=== PATIENT | male | born 1955 | race Caucasian/White ===

== ENCOUNTER 2023-10-08 22:58 | Emergency (ER) | payer MEDICARE ==
--- NOTE | 2023-10-09 00:21 | ED Physician Documentation ---
History of Present Illness - Stated complaint Stated Complaint: BILAT FEET SWELLING - Chief complaint Chief Complaint: Ext Problem - History obtained from History obtained from: Patient - Additonal information Additional information: HPI from patient. Patient complains of bilateral lower extremity swelling over the past 2 to 3 days, although predominantly right-sided. He has never had this before. He says there is no associated pain in either leg. The swelling in the right leg has been gradually worsening over this timeframe. 10 days ago, the patient [facility] [place] [facility]. Patient also notes dyspnea, exacerbated with exertion, over the past 2 to 3 days, as well. He does not offer chest pain is a chief complaint, but on review of systems, the patient does note episodic chest discomfort, midline anterior, over the past 2 to 3 months. Review of Systems Constitutional: reports: Reviewed and negative Cardiac: reports: Chest pain / pressure, Pedal edema. denies: Palpitations, Calf pain Respiratory: reports: Dyspnea. denies: Cough GI: denies: Abdominal Pain, Nausea, Vomiting PD PAST MEDICAL HISTORY - Past Medical History Past Medical History: Yes Musculoskeletal: Chronic back pain - Past Surgical History Past Surgical History: Yes Ortho: Spine surgery - Present Medications Home Medications: Ambulatory Orders Medication Instructions Recorded Confirmed Aspirin [[place] Aspirin] 81 mg PO DAILY 10/08/23 10/08/23 Gabapentin [Neurontin] 100 mg PO UD 10/08/23 10/08/23 Multivitamin 1 each PO DAILY 10/08/23 10/08/23 Saw [place] 160 mg PO DAILY 10/08/23 10/08/23 Zinc Gluconate [Zinc] 30 mg PO DAILY 10/08/23 10/08/23 Furosemide [Lasix] 20 mg PO BID #10 tablet 10/09/23 - Allergies Allergies/Adverse Reactions: Allergies Allergy/AdvReac Type Severity Reaction Status Date / Time bee venom protein (honey bee) Allergy Anaphylaxis Verified 10/08/23 23:42 - Social History Does the pt smoke?: Yes Smoking Status: Current every day smoker Does the pt drink ETOH?: Yes PD ED PE NORMAL - Vitals Vital signs reviewed: Yes - General General: Alert and oriented X 3, No acute distress, Well developed/nourished - Neck Neck: Supple, no meningeal sign - Cardiac Cardiac: RRR, No murmur, No gallop, No rub, Other (rare skipped beat) - Respiratory Respiratory: No respiratory distress, Clear bilaterally - Abdomen Abdomen: Soft, Non tender PD ED PE EXPANDED - Extremities Extremities: Pedal edema R, Other (mild RLE pitting edema from toes to proximal lower leg. no erythema, no tenderness. strong bilateral pedal pulses and brisk capillary refill. trace LLE edema at ankle) Results - Vitals Vitals: Oxygen O2 Source Room air - EKG (time done) No standard instances EKG releavant findings:: EKG personally interpreted by author of this note. Relevant findings are: Rate: Rate (enter#) (98) Rhythm: NSR [place]: LAD Intervals: Normal SD, LBBB (incomplete) QRS: LVH Ischemia: ST elevation c/w repol, Q waves (inferior leads, V1, V2) Compare to prior EKG: Old EKG unavailable - Labs Labs: Laboratory Tests 10/09/23 10/09/23 10/09/23 01:15 01:15 01:15 WBC 10.3 RBC 5.29 Hgb 16.5 Hct 51.9 MCV 98.1 H MCH 31.2 H MCHC 31.8 L RDW 13.1 Plt Count 233 MPV 9.8 Neut # (Auto) 7.4 H Lymph # (Auto) 1.8 [place] # (Auto) 0.7 Eos # (Auto) 0.4 Baso # (Auto) 0.0 Absolute Nucleated RBC 0.00 Nucleated RBC % 0.0 PT 12.3 INR 1.1 APTT 28.8 Sodium 141 Potassium 4.5 Chloride 108 Carbon Dioxide 26 Anion Gap 7.0 BUN 18 Creatinine 1.0 Estimated GFR (MDRD) 75 L Glucose 99 Calcium 9.1 Total Bilirubin 0.5 AST 15 ALT 15 Alkaline Phosphatase 79 Troponin I High Sens 20.5 H* B-Natriuretic Peptide 1511 H Total Protein 6.7 Albumin 4.0 Globulin 2.7 Albumin/Globulin Ratio 1.5 Lipase 45 10/09/23 04:02 WBC RBC Hgb Hct MCV MCH MCHC RDW Plt Count MPV Neut # (Auto) Lymph # (Auto) [place] # (Auto) Eos # (Auto) Baso # (Auto) Absolute Nucleated RBC Nucleated RBC % PT INR APTT Sodium Potassium Chloride Carbon Dioxide Anion Gap BUN Creatinine Estimated GFR (MDRD) Glucose Calcium Total Bilirubin AST ALT Alkaline Phosphatase Troponin I High Sens 19.3 B-Natriuretic Peptide Total Protein Albumin Globulin Albumin/Globulin Ratio Lipase - Rads (name of study) CTA chest Relevant Findings:: Prelim report reviewed, See rad report PD Medical Decision Making - ED course Complexity details: reviewed results, re-evaluated patient, considered differential, d/w patient, d/w family ED course: DVT is an obvious concern, given the chief complaint of atraumatic leg swelling within context of recent [id number] airplane flight; patient says the swelling is bilateral, but noticed more so on the right. At most, I detect trace left leg swelling limited to the ankle. There is mild but obvious right leg swelling as noted in physical exam section of this chart, above. 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 If this was the only complaint, would consider a dose of Lovenox and instruction to return later in the morning when ultrasound is available. Unfortunately, the patient is also complaining of episodic chest pain, although this has been episodic for months. He is also complaining of shortness of breath, which he has not had before, over the past few days. The chief complaints broaden the differential diagnosis to incorporate potential for DVT with pulmonary embolism, and for this a CTA of the chest is undertaken. Given that the patient is noting bilateral lower extremity swelling, the differential would also include peripheral edema, as well as episodic angina (given few months of chest pain) which could be causing decreasing ejection fraction which, in turn, could be causing peripheral edema. BNP, EKG, and hs-cTn are thus included in workup. Initial high-sensitivity troponin is minimally elevated above normal range (20.5). 3-hour repeat is 19.3 which is now within normal range. BNP is elevated (1511). CTA of the chest has no evidence of large central pulmonary emboli although there is some-optimal assessment of the segmental branches due to motion artifact. Also on this study are cardiomegaly, small pericardial effusion, moderate bilateral layering pleural effusion, Bibasilar airspace disease, findings likely cardiogenic. Reflux of contrast is noted into the hepatic veins possibly sequela of pulmonary vascular insufficiency. Also noted is possible reactive mediastinal lymph nodes. Results discussed with patient. On reevaluation, I note that ultrasound hours are starting within 90 minutes of our discussion on reevaluation. I encouraged him to stay until the ultrasound could be performed to help investigate possible right lower extremity DVT. He politely declines, says he is exhausted from being up all night and very much is wanting to go home. He is comfortable with my recommendation which is to get a 1-time dose of weight-based Lovenox subcu and return later today to have the ultrasound performed. He is given Lovenox 60 mg subcutaneously. Given the findings on CT and the swelling in his right leg but also, although subtle, left leg, and considering his normal BUN and creatinine, he is also given 20 mg p.o. Lasix and I am prescribing a short course of twice daily Lasix 20 mg for diuresis. Particular emphasis is placed on the need to establish with a local primary care provider for follow-up, even if he is feeling improved. I explained to him that he very likely needs further testing, particularly echocardiogram. Departure - Departure Disposition: Home, Self Care Clinical Impression: Peripheral edema Pulmonary edema Qualifiers: Chronicity: acute Qualified Code(s): J81.0 - Acute pulmonary edema Condition: Good Instructions: Edema Pulmonary, DIURETIC, General, Lasix, ED Leg Swelling Unilateral Prescriptions: Furosemide [Lasix] 20 mg PO BID #10 tablet Comments: There are number of abnormalities on the CT scan of your chest. You have a small amount of fluid around your heart, as well as small amount of fluid at the bases of both lungs. You need further testing to determine the cause of these findings. As we discussed, further testing would be at the discretion of your primary care provider, but will likely include an echocardiogram (ultrasound of your heart). Since you are new to the area, on Wednesday you should start working on seeking follow-up and establish yourself with a local primary care provider. I have provided you with a prescription for a short course of Lasix (diuretic). This can help take some of the fluid off of the lungs which, in turn, should help you breathe easier. I am only writing for very short course of this medication because longer courses need closer monitoring and follow-up, as it can cause kidney problems as well as abnormal electrolytes. I also am recommending that you return later today for an ultrasound of your right leg. Even though there was no large clot detected on the CT scan of your chest, is still possible that you have a clot in the right leg; an ultrasound can help determine if this is the cause of the right leg swelling. You were given a 1-time dose of a blood thinning medication (Lovenox) in the emergency department so that if you do have a clot in the right leg, the treatment is at least already been initiated. However, it is important that you return later today to have the ultrasound performed; if you do have a blood clot in the right leg, you will need ongoing blood-thinning medication which can then be prescribed orally. Forms: PCP List Discharge Date/Time: 10/09/23 07:04
[2023-10-09 01:21] LABS: BASOPHILS % (AUTO) 0.3 %; EOSINOPHILS # (AUTO) 0.4 10^3/uL (0.0-0.7); EOSINOPHILS % (AUTO) 3.4 %; HCT - HEMATOCRIT 51.9 % (42.0-52.0); HGB - HEMOGLOBIN 16.5 g/dL (14.0-18.0); LYMPHOCYTES # (AUTO) 1.8 10^3/uL (1.5-3.5); LYMPHOCYTES % (AUTO) 17.7 %; MEAN CORPUSCULAR HEMOGLOBIN 31.2 pg (27.0-31.0); MEAN CORPUSCULAR HGB CONC 31.8 g/dL (32.0-36.0); MEAN CORPUSCULAR VOLUME 98.1 fL (80.0-94.0); MEAN PLATELET VOLUME 9.8 fL (7.4-11.4); MONOCYTES # (AUTO) 0.7 10^3/uL (0.0-1.0); MONOCYTES % (AUTO) 6.8 %; NEUTROPHILS # (AUTO) 7.4 10^3/uL (1.5-6.6); NEUTROPHILS % (AUTO) 71.4 %; PLT - PLATELET COUNT 233 10^3/uL (130-450); RED BLOOD COUNT 5.29 10^6/uL (4.70-6.10); RED CELL DISTRIBUTION WIDTH 13.1 % (12.0-15.0); WHITE BLOOD COUNT 10.3 x10^3/uL (4.8-10.8)
[2023-10-09 01:38] LABS: ALBUMIN/GLOBULIN RATIO 1.5 (1.0-2.2); BILIRUBIN,TOTAL 0.5 mg/dL (0.2-1.0); CALCIUM 9.1 mg/dL (8.5-10.3); POTASSIUM 4.5 mmol/L (3.5-4.5); TOTAL PROTEIN 6.7 g/dL (6.4-8.9)
[2023-10-09 01:58] LABS: TROPONIN I HIGH SENSITIVITY 20.5 ng/L (2.3-19.7)
[2023-10-09 02:41] LABS: PARTIAL THROMBOPLASTIN TIME 28.8 secs (24.9-33.3)
[2023-10-09 02:46] LABS: INR 1.1 (0.8-1.2); PT - PROTHROMBIN TIME 12.3 secs (9.9-12.6)
[2023-10-09] MEDS ORDERED: iohexoL-300 100 ML VIAL ONE (02:52)
[2023-10-09] MEDS ORDERED: iohexoL-300 100 ML VIAL IVP ONE (03:25)
[2023-10-09] MEDS ORDERED: FUROSEMIDE 20 MG TABLET PO STA (06:32)
[2023-10-09] MEDS ORDERED: ENOXAPARIN 60 MG/0.6 ML SYRINGE SUBQ STA (06:34)
[2023-10-09 07:06] VITALS: BP 137/90; O2SAT 97
--- NOTE | 2023-10-09 11:34 | CT Report ---
PROCEDURE: CT angiogram chest INDICATIONS: RLE swelling since air travel, now CP and dysnpea TECHNIQUE: Helical axial CT of the chest was obtained during the angiographic phase of an intravenou s contrast injection. Images were reformatted in multiple planes, and a MIP series was also utilized . Radiation dose reduction was achieved utilizing automated exposure control or adjustment of mA and/ or kV according to patient size. COMPARISON: None FINDINGS: Image quality: Study is limited by motion artifact Vasculature: No evidence of central pulmonary embolism, aortic dissection or aneurysm. Motion artifac ts limits assessment of distal vessels. Lungs and pleura: Moderate bilateral pleural effusions with associated compressive atelectasis Mediastinum: Heart size is enlarged. No pericardial effusion. No large vessel abnormality. No mediast inal adenopathy by size criteria. Dense coronary artery vascular calcification Chest wall and lower neck: Thyroid is unremarkable. No axillary or supraclavicular adenopathy by size . Bones: No aggressive osseous abnormality. Upper Abdomen: Unremarkable. IMPRESSION: No evidence of central pulmonary emboli, aortic dissection or aneurysm. Assessment of the peripheral pulmonary vasculature is limited by motion Moderate bilateral pleural effusions associated with atelectasis and or infiltrate Note: This final report is concordant with the preliminary after-hours interpretation provided by [facility], [employer] Reviewed by: Wilfredo Samuels MD on 10/09/2023 10:33 AM [facility] Approved by: Wilfredo Samuels MD on 10/09/2023 10:33 AM [facility] Station ID: [id number]
== END 2023-10-09 07:04 | disposition home or self-care (01) ==
LOC: ED 22:58
DX: J81.0 Acute pulmonary edema (principal); F17.200 Nicotine dependence, unspecified, uncomplicated
CPT/HCPCS: 36415; 71275; 80053; 83690; 83880; 84484; 85025; 85610; 85730; 93005; 96372; 99284; A9270; J1650; Q9967

== ENCOUNTER 2024-02-06 14:26 | Outpatient (CLI) | payer MEDICARE | END 2024-02-06 23:59 | disposition critical access hospital (66) | LOC: EMS 14:26 | DX: R55 Syncope and collapse (principal) | CPT/HCPCS: A0425; A0429 ==

== ENCOUNTER 2024-02-06 14:50 | Emergency (ER) | payer MEDICARE ==
--- NOTE | 2024-02-06 14:54 | ED Physician Documentation ---
History of Present Illness - Stated complaint Stated Complaint: SYNCOPE - History obtained from History obtained from: Patient, EMS - Additonal information Additional information: 69-year-old gentleman with history of coronary disease with multiple recent stents, CHF presents by ambulance after short syncopal episode. He was in his usual state of health and a motorized cart in the grocery store looking for his son who he could not find then he started to feel "swimmy" and reportedly passed out for about 30 seconds or so. There is no associated chest pain and no and no trouble breathing. He says he feels fine now. About a week ago he had a dose of furosemide/Lasix cut in half.. PD PAST MEDICAL HISTORY - Past Medical History Musculoskeletal: Chronic back pain - Past Surgical History Past Surgical History: Yes Ortho: Spine surgery - Present Medications Home Medications: Ambulatory Orders Medication Instructions Recorded Confirmed Aspirin [[place] Aspirin] 81 mg PO DAILY 10/08/23 10/08/23 Gabapentin [Neurontin] 100 mg PO UD 10/08/23 10/08/23 Multivitamin 1 each PO DAILY 10/08/23 10/08/23 Saw [place] 160 mg PO DAILY 10/08/23 10/08/23 Zinc Gluconate [Zinc] 30 mg PO DAILY 10/08/23 10/08/23 Furosemide [Lasix] 20 mg PO BID #10 tablet 10/09/23 - Allergies Allergies/Adverse Reactions: Allergies Allergy/AdvReac Type Severity Reaction Status Date / Time bee venom protein (honey bee) Allergy Anaphylaxis Verified 02/06/24 15:01 - Social History Does the pt smoke?: Yes Smoking Status: Current every day smoker Does the pt drink ETOH?: Yes PD ED PE NORMAL - Vitals Vital signs reviewed: Yes - General General: Alert and oriented X 3, No acute distress - Cardiac Cardiac: RRR, No murmur - Respiratory Respiratory: No respiratory distress, Clear bilaterally - Abdomen Abdomen: Non tender - Extremities Extremities: No edema, No calf tenderness / cord - Neuro Neuro: Alert and oriented X 3 Results - Vitals Vitals: Vital Signs - 24 hr 02/06/24 02/06/24 02/06/24 14:55 15:01 15:13 Temperature 36.4 C L 36.5 C Heart Rate 84 84 Heart Rate [ 80 Sitting] Heart Rate [ 93 Standing] Heart Rate [ 75 Supine] Respiratory 16 16 Rate Blood Pressure 115/84 H 115/84 H Blood Pressure 110/71 [Sitting] Blood Pressure 112/78 [Standing] Blood Pressure 115/84 H [Supine] O2 Saturation 100 100 02/06/24 15:31 Temperature Heart Rate 83 Heart Rate [ Sitting] Heart Rate [ Standing] Heart Rate [ Supine] Respiratory 20 Rate Blood Pressure 120/74 Blood Pressure [Sitting] Blood Pressure [Standing] Blood Pressure [Supine] O2 Saturation 100 Oxygen O2 Source Room air - EKG (time done) 1455 EKG releavant findings:: EKG personally interpreted by author of this note. Relevant findings are: Rate: Rate (enter#) (75) Rhythm: NSR Intervals: LBBB QRS: Normal Ischemia: Normal ST segments - Labs Labs: Laboratory Tests 02/06/24 02/06/24 15:22 15:22 WBC 8.8 RBC 5.03 Hgb 15.4 Hct 49.1 MCV 97.6 H MCH 30.6 MCHC 31.4 L RDW 12.4 Plt Count 280 MPV 9.2 Neut # (Auto) 6.0 Lymph # (Auto) 1.6 [place] # (Auto) 0.9 Eos # (Auto) 0.3 Baso # (Auto) 0.0 Absolute Nucleated RBC 0.00 Nucleated RBC % 0.0 Sodium 135 Potassium 4.3 Chloride 98 L Carbon Dioxide 28 Anion Gap 9.0 BUN 16 Creatinine 1.3 Estimated GFR (MDRD) 55 L Glucose 106 H Calcium 10.3 Magnesium 2.0 Total Bilirubin 0.6 AST 18 ALT 19 Alkaline Phosphatase 82 Total Protein 8.5 Albumin 4.6 Globulin 3.9 Albumin/Globulin Ratio 1.2 PD Medical Decision Making - ED course ED course: 69-year-old gentleman had a short syncopal episode not associated with chest pain or trouble breathing in the grocery store just prior to arrival. On arrival here he seems hemodynamically stable with unremarkable vital signs and no complaints and unremarkable examination. EKG showing slight widening of his QRS complex compared to the last 1 done on the chart but actually his EKG today overall looks better with less signs of LVH and strain. He was monitored for a while and there was no arrhythmias on the monitor he remained asymptomatic. Orthostatics were done and normal albeit his heart rate did go up almost 20 points with standing. CBC and CMP were unremarkable. He was offered observation stay for prolonged cardiac monitoring and echocardiogram which was declined by the patient and preferring to have his son keep an eye on him at home. Departure - Departure Disposition: 01 Home, Self Care Clinical Impression: Syncope Qualifiers: Syncope type: unspecified Qualified Code(s): R55 - Syncope and collapse Condition: Good Record reviewed to determine appropriate education?: Yes Instructions: ED Fainting Unkn Cause Comments: The cause of your passing out today was not clear, that said the diagnostic testing done in the emergency department was relatively unremarkable. Your EKG showed a left bundle branch block which is not new, otherwise labs and orthostatic vital signs were normal/negative. [facility] Return for new or worsening symptoms or recurrent episodes.
[2024-02-06 15:05] VITALS: O2SAT 100
[2024-02-06 15:26] LABS: BASOPHILS % (AUTO) 0.3 %; EOSINOPHILS # (AUTO) 0.3 10^3/uL (0.0-0.7); HCT - HEMATOCRIT 49.1 % (42.0-52.0); HGB - HEMOGLOBIN 15.4 g/dL (14.0-18.0); LYMPHOCYTES # (AUTO) 1.6 10^3/uL (1.5-3.5); LYMPHOCYTES % (AUTO) 17.8 %; MEAN CORPUSCULAR HEMOGLOBIN 30.6 pg (27.0-31.0); MEAN CORPUSCULAR HGB CONC 31.4 g/dL (32.0-36.0); MEAN CORPUSCULAR VOLUME 97.6 fL (80.0-94.0); MEAN PLATELET VOLUME 9.2 fL (7.4-11.4); MONOCYTES # (AUTO) 0.9 10^3/uL (0.0-1.0); NEUTROPHILS % (AUTO) 68.7 %; PLT - PLATELET COUNT 280 10^3/uL (130-450); RED BLOOD COUNT 5.03 10^6/uL (4.70-6.10); RED CELL DISTRIBUTION WIDTH 12.4 % (12.0-15.0); WHITE BLOOD COUNT 8.8 x10^3/uL (4.8-10.8)
[2024-02-06 15:43] LABS: ALBUMIN 4.6 g/dL (3.2-5.5); ALBUMIN/GLOBULIN RATIO 1.2 (1.0-2.2); BILIRUBIN,TOTAL 0.6 mg/dL (0.2-1.0); CALCIUM 10.3 mg/dL (8.5-10.3); CREATININE 1.3 mg/dL (0.6-1.3); POTASSIUM 4.3 mmol/L (3.5-4.5); TOTAL PROTEIN 8.5 g/dL (6.4-8.9)
[2024-02-06 15:46] VITALS: BP 120/74
== END 2024-02-06 16:00 | disposition home or self-care (01) ==
LOC: EDUNIT# → ED 14:50
DX: R55 Syncope and collapse (principal); I44.7 Left bundle-branch block, unspecified; I25.10 Atherosclerotic heart disease of native coronary artery without angina pectoris; I50.9 Heart failure, unspecified; F17.200 Nicotine dependence, unspecified, uncomplicated; Z95.5 Presence of coronary angioplasty implant and graft
CPT/HCPCS: 36415; 80053; 83735; 85025; 93005; 99284